=== PATIENT | female | born 1970 | race Caucasian/White ===

== ENCOUNTER 2017-01-21 16:43 | Observation (INO) | payer SELFPAY ==
[2017-01-21] MEDS ORDERED: LIDOCAINE VIS-MYLANTA 30 ML UD PO ONE (16:56)
[2017-01-21] MEDS ORDERED: ASPIRIN TABLET 325 MG TAB PO ONE (16:56)
[2017-01-21] MEDS ORDERED: ALPRAZolam 0.25 MG TAB PO ONE (16:56)
--- NOTE | 2017-01-21 17:31 | RAD ---
EXAM: Chest,2 Views CLINICAL INDICATION: 46-year-old female with palpitations. TECHNIQUE: Two-view, PA and lateral projections of the chest were obtained. COMPARISON: None. FINDINGS: Unremarkable cardiac and mediastinal silhouette. Heart size is normal. Lungs are clear without focal opacity, pneumothorax or pleural effusions. The visualized bones are within normal limits. IMPRESSION: No acute cardiopulmonary abnormalities. Electronically signed by: Tabitha Srivastava MD 01/21/2017 5:31 PM CDT Workstation: [id number]
[2017-01-21] MEDS ORDERED: SODIUM CHLORIDE 0.9% 1000ML 1,000 ML IVS ONE (18:40)
[2017-01-21] MEDS ORDERED: HYDROcodone 5MG/APAP 325MG 1 EA TAB PO ONE (20:47)
[2017-01-21] MEDS ORDERED: PIPERACILLIN/TAZOBACTAM 3.375 GM in SODIUM CHLORIDE 0.9% 100ML 100 ML IVPB ONE (21:10)
[2017-01-21] MEDS ORDERED: PIPERACILLIN/TAZOBACTAM 3.375 GM VIAL IVPB ONE (21:15)
[2017-01-21] MEDS ORDERED: SODIUM CHLORIDE 0.9% 100ML 100 ML IVPB ONE (21:16)
--- NOTE | 2017-01-21 23:06 | ED.PDOC ---
History of Present Illness - General Chief Complaint: Cardiovascular Problem Stated Complaint: Feels like her heart is racing Time Seen by Provider: 01/21/17 16:47 Source: patient Exam Limitations: no limitations - History of Present Illness Initial Comments: the patient is a 46-year-old female presenting to the emergency room secondary to 24 hours of the progressive symptoms of palpitations and her heart racing. She is having tingling around her mouth and in her hands. symptoms have been steady and progressive. The patient started phentermine as a diet supplement 3 weeks ago She does have a history of mitral valve prolapse. no chest pain. She is feeling short of breath. Vital signs are very reassuring. oxygen saturations are at 100% on room air. Blood pressure is low normal, but this is apparently not new for her. She has no cardiac history other than the mitral valve prolapse. her temperature is mildly elevated upon arrival. she has no abdominal pain upon arrival. Telemetry monitoring is showing no tachycardia. She is in normal sinus rhythm and has remained so since arrival, even though she is still feeling the palpitations and racing. Symptoms of palpitations and racing resolved with a dose of Xanax and IV fluids. The patient was tilt negative by blood pressure but tilt positive by pulse. Timing/Duration: 1-3 hours Severity: moderate Improving Factors: nothing Worsening Factors: nothing Associated Symptoms: shortness of breath Allergies/Adverse Reactions: Allergies Aspirin Allergy (Verified 01/21/17 19:35) Unknown Home Medications: Ambulatory Orders Phentermine HCl 37.5 mg PO DAILY 01/21/17 Review of Systems - Review of Systems Constitutional: States: no symptoms reported EENTM: States: no symptoms reported Respiratory: States: short of breath Cardiology: States: palpitations Gastrointestinal/Abdominal: States: no symptoms reported Genitourinary: States: no symptoms reported Musculoskeletal: States: no symptoms reported Skin: States: no symptoms reported Neurological: States: anxiety, tingling Endocrine: States: no symptoms reported Hematologic/Lymphatic: States: no symptoms reported All other Systems: No Change from Baseline Past Medical History (General) - Patient Medical History Hx Stroke: No Hx Congestive Heart Failure: No Hx Diabetes: No - Vaccination History Hx Influenza Vaccination: No Hx Pneumococcal Vaccination: No - Social History Hx Tobacco Use: Yes - Female History Patient is a Female of Child Bearing Age (10 -59 yrs old): No - hyst Family Medical History - Family History Mother Family History: No Known Physical Exam - Physical Exam General Appearance: Alert, Anxious, Obvious distress - very anxious Eye Exam: bilateral normal Ears, Nose, Throat: hearing grossly normal, normal ENT inspection, normal pharynx Neck: non-tender, full range of motion, supple Respiratory: chest non-tender, lungs clear, normal breath sounds, no respiratory distress, no accessory muscle use Cardiovascular/Chest: normal peripheral pulses, regular rate, rhythm, no edema Peripheral Pulses: radial,right: 2+, radial,left: 2+, dorsalis pedis,right: 2+, dorsalis pedis,left: 2+, posterior tibialis,right: 2+, posterior tibialis,left: 2+ Gastrointestinal/Abdominal: non tender - the patient developed some mild left mid abdominal pain approximately 4 hours into the hospital stay, soft, no organomegaly Rectal Exam: deferred Back Exam: normal inspection, no CVA tenderness, no vertebral tenderness Extremity: normal range of motion, non-tender, normal inspection, no pedal edema , normal capillary refill Neurologic: campus rep II-XII nml as tested, no motor/sensory deficits, alert, oriented x 3, other - very anxious and having an anxiety attack Skin Exam: normal color Comments: Vital Signs - 24 hr 01/21/17 01/21/17 01/21/17 16:45 17:01 18:20 Temperature 100.3 F H Pulse Rate 79 79 79 Pulse Rate [ 79 68 107 H Apical] Respiratory 20 16 16 Rate Blood Pressure 108/52 110/64 103/63 [Left Arm] O2 Sat by Pulse 94 L 96 100 Oximetry 01/21/17 01/21/17 19:01 20:56 Temperature 101 F H Pulse Rate Pulse Rate [ 83 Apical] Respiratory 16 Rate Blood Pressure 107/60 [Left Arm] O2 Sat by Pulse 93 L Oximetry Progress - Progress Progress: 01/21/17 23:11 the patient is a 46-year-old female presenting with a somewhat confusing clinical picture. I am not 100% certain about the source of the problems on this patient, and for that reason primarily she is being admitted for further monitoring and workup. Initial anxiety attack associated with palpitations is likely worsened by the phentermine. That has been held for now. The patient responded well to Xanax and IV fluids. She has been monitored on telemetry and has maintained a normal sinus rhythm. She does have EKG changes in her anterior leads that are likely long-standing. There were no dynamic changes from when she was feeling the palpitations to when she was symptom-free. cardiac enzymes and BNP are completely normal. The patient has never had any chest pain. she should have a formal cardiac evaluation sometime in the near future for further evaluation of these changes. For now, she will be admitted for telemetry monitoring overnight. The patient also has a low-grade fever of uncertain origin. She does have mild left mid abdominal discomfort that has developed since her arrival here. She may possibly have early diverticulitis, but it is just as likely to be a viral enteritis that we have seen in multiple patients today. She was given 1 dose of IV Zosyn. This will need to be followed. Laboratory work is reassuring. the patient is being admitted to make sure she improves, rather than worsens. Also to make sure no other source for the above symptoms becomes apparent. 01/21/17 23:18 - Results/Orders Results/Orders: Laboratory Tests 01/21/17 01/21/17 01/21/17 16:56 17:18 17:18 WBC 6.2 RBC 4.72 Hgb 13.7 Hct 41.8 MCV 88.7 MCH 29.1 MCHC 32.9 L RDW 14.4 Plt Count 179 MPV 8.0 Absolute Neuts (auto) 4.70 Absolute Lymphs (auto) 0.90 L Absolute Monos (auto) 0.40 Absolute Eos (auto) 0.10 Absolute Basos (auto) 0.10 Neutrophils % 76.2 Lymphocytes % 14.6 L Monocytes % 6.9 Eosinophils % 1.1 Basophils % 1.2 PT INR PTT (SP) D-Dimer, Quantitative Sodium 137 Potassium 3.5 L Chloride 101 Carbon Dioxide 26 Anion Gap 13.5 BUN 13 Creatinine 1.04 BUN/Creatinine Ratio 12.5 Random Glucose 107 H Serum Osmolality 274.4 L Calcium 9.5 Magnesium 1.8 Total Bilirubin 0.3 AST 23 ALT 17 Alkaline Phosphatase 88 Creatine Kinase 66 CK-MB (CK-2) 0.4 CK-MB (CK-2) % Not Reportable Troponin I < 0.02 B-Natriuretic Peptide < 5.0 Serum Total Protein 7.9 Albumin 4.6 Globulin 3.3 Albumin/Globulin Ratio 1.4 Amylase 53 TSH 0.85 Urine Color Urine Appearance Urine pH Ur Specific [place] Urine Protein Urine Glucose (UA) Urine Ketones Urine Blood Urine Nitrite Urine Bilirubin Urine Urobilinogen Ur Leukocyte Esterase Urine RBC Urine WBC Ur Epithelial Cells Urine Bacteria Urine Mucus Urine HCG, Qual Negative 01/21/17 01/21/17 01/21/17 17:18 17:35 20:23 WBC RBC Hgb Hct MCV MCH MCHC RDW Plt Count MPV Absolute Neuts (auto) Absolute Lymphs (auto) Absolute Monos (auto) Absolute Eos (auto) Absolute Basos (auto) Neutrophils % Lymphocytes % Monocytes % Eosinophils % Basophils % PT 11.6 INR 1.030 PTT (SP) 30.2 D-Dimer, Quantitative < 230 Sodium Potassium Chloride Carbon Dioxide Anion Gap BUN Creatinine BUN/Creatinine Ratio Random Glucose Serum Osmolality Calcium Magnesium Total Bilirubin AST ALT Alkaline Phosphatase Creatine Kinase 56 CK-MB (CK-2) 0.3 CK-MB (CK-2) % Not Reportable Troponin I < 0.02 B-Natriuretic Peptide Serum Total Protein Albumin Globulin Albumin/Globulin Ratio Amylase TSH Urine Color Yellow Urine Appearance Clear Urine pH 8.5 H Ur Specific [place] 1.015 Urine Protein 30 Urine Glucose (UA) Negative Urine Ketones 15 H Urine Blood Negative Urine Nitrite Negative Urine Bilirubin Small H Urine Urobilinogen 1.0 Ur Leukocyte Esterase Negative Urine RBC 0 Urine WBC 0 Ur Epithelial Cells 1-3 Urine Bacteria 0 Urine Mucus Moderate Urine HCG, Qual initial and repeat EKGs show very mild ST segment depression and T-wave inversion in leads V3 and V4 along with persistent Q waves in lead 3. normal sinus rhythm. Normal NC and QT intervals chest x-ray appears benign. Departure - Departure Clinical Impression: Palpitations, Anxiety, Abdominal pain Fever Qualifiers: Fever type: unspecified Qualified Code(s): R50.9 - Fever, unspecified Disposition: Admit Patient Referrals: Gilmar Ruano III, MD [Primary Care Provider] - 1-2 Weeks Home Medications: Ambulatory Orders Phentermine HCl 37.5 mg PO DAILY 01/21/17 Decision To Admit - Decistion To Admit Decision to Admit Reason: Medical Nature Decision to Admit Date: 01/21/17 Decision to Admit Time: 23:19
--- NOTE | 2017-01-21 23:06 | HP ---
CHIEF COMPLAINT: Palpitations and cough. HISTORY OF PRESENT ILLNESS: Ms. Resendiz is a 46-year-old, white female who presented to the Emergency Room this afternoon with a 24 hour history of palpitations and an evolving cough. The patient's symptoms started yesterday. She had a pretty low boogie day with one trip to the grocery store, cooking one meal, and the rest of the time just hanging out around the house with family. She admits to not drinking a lot of water. She started having a nonproductive cough a couple of days ago. Yesterday, she started coughing up some yellow sputum with it. She has not had any fever or chills along with the cough. She has chronic constipation and occasionally gets some stomach cramping. That has been at baseline and there has been no worsening of her normal belly pain. She denies nausea, vomiting and diarrhea. She has been exposed to an ill granddaughter who was seen in the clinic a couple of days ago with an unknown respiratory illness (she saw the nurse practitioner). The patient also started taking Phentermine from Dr. Ruano about three weeks ago. This was being prescribed as a weight loss aid. The patient has a history of mitral valve prolapse, anxiety, and a little depression. She takes citalopram. It was felt in the Emergency Room that she was dealing with primary anxiety associated with palpitations from the Phentermine and an early febrile illness. Dr. Hart in the Emergency Room thought the patient was tender in her left lower quadrant and he gave her a dose of IV Zosyn for potential diverticulitis although the patient has no history of diverticular disease. PAST MEDICAL HISTORY: 1. Anxiety with depression. 2. Gastroesophageal reflux disease. 3. Allergic rhinitis. 4. Mitral valve prolapse. PAST SURGICAL HISTORY: 1. Hysterectomy with bilateral oophorectomy. 2. Cholecystectomy. 3. Appendectomy. 4. Multiple laparoscopies for endometriosis prior to her hysterectomy. CURRENT MEDICATIONS: 1. Nexium 40 mg b.i.d. 2. Claritin 10 mg daily. 3. Phentermine unknown dose daily. 4. Celexa 20 mg daily. ALLERGIES: ASPIRIN. FAMILY HISTORY: Negative for premature heart disease. SOCIAL HISTORY: She smokes one pack of cigarettes per day. She rarely drinks alcoholic beverages and never gets drunk. No history of drug use. She is and lives with her here in [place]. REVIEW OF SYSTEMS: CONSTITUTIONAL: She has fatigue, but no fever or chills. No recent weight loss. HEENT: No head congestion or sore throat. CARDIOVASCULAR: No chest pains. She does have palpitations. They were relieved in the Emergency Room with one Xanax 0.25 mg tablet. PULMONARY: No shortness of breath or cough. GASTROINTESTINAL: No abdominal pain, nausea, vomiting, diarrhea, melena or hematochezia. GENITOURINARY: No incontinence, dysuria or hematuria. NEUROLOGIC: She has a slight headache, no neck pain, no dizziness or focal weakness. HEMATOLOGIC: No bleeding tendencies or easy bruising. LYMPHATIC: No swollen lymph nodes. PHYSICAL EXAMINATION: VITAL SIGNS: Temperature 98.0 (she was up to 101.0 in the Emergency Room). Pulse 73 (she was up to 98 in the Emergency Room, but never over 100). Blood pressure 94/58. Respiratory rate 20. Pulse oximetry 100% on room air. GENERAL: Awake, alert, no distress. HEENT: Sclerae, conjunctivae, oropharynx clear. Mucous membranes are a little dry. NECK: Supple. No adenopathy. CHEST: Clear to auscultation. CARDIOVASCULAR: Regular rate and rhythm without murmur. ABDOMEN: Soft, nontender, nondistended. EXTREMITIES: No cyanosis, clubbing, or edema. NEUROLOGIC: No focal motor or sensory deficits. LABORATORY: White cells 6.2, hematocrit 41.8, platelet count 179. Sodium 137, potassium 3.5, chloride 101, carbon dioxide 26, BUN 13, creatinine 1.04, CPK 66 , troponin less than 0.02, BNP less than 5, TSH 0.85. Urinalysis negative. Chest x-ray normal. EKG shows flattening of the T-waves in the anterior leads. This was unchanged when she was asymptomatic and when she was having palpitations in the Emergency Room. Repeat cardiac enzymes in the Emergency Room remained normal. ASSESSMENT: 1. Palpitations, probably secondary to acute illness combined with hydration and taking of Phentermine. 2. Febrile illness, suspect acute bronchitis versus pneumonia. 3. Mild dehydration. 4. Anxiety. 5. Gastroesophageal reflux disease. 6. Mitral valve prolapse. PLAN: The patient will be placed in observation overnight. We will repeat some blood work in the morning. I am going to hold her usual home medications for the time being. She will definitely be off of Phentermine forever. We will give her a full liter of normal saline. We will let her eat some breakfast in the morning and see how she is feeling. I do not think she has diverticulitis. I think her fever is most likely coming from a respiratory illness. I would like to repeat a chest x-ray and a CBC in the morning to make sure she is not developing pneumonia. #[id number] [facility]ENTERBess
[2017-01-22] MEDS ORDERED: NITROGLYCERIN 0.4 MG 25 EA TAB SL PRN (05:12)
--- NOTE | 2017-01-22 06:07 | RAD ---
EXAM DESCRIPTION: Chest,2 Views CLINICAL HISTORY: SOB COMPARISON: None FINDINGS: Cardiac silhouette is within normal limits. EKG leads project over the chest. There is no focal parenchymal or pleural disease. There is no acute osseous process visualized. IMPRESSION: No evidence of acute cardiopulmonary disease. Electronically signed by: Carter Goss MD 01/22/2017 6:07 AM CDT
[2017-01-22] MEDS ORDERED: ACETAMINOPHEN 325 MG TAB PO PRN (06:27)
[2017-01-22 06:44] VITALS: BP 101/67; TEMP 101.1
[2017-01-22] MEDS ORDERED: AZITHROMYCIN 250 MG TAB PO ONE (08:46)
[2017-01-22 09:39] VITALS: O2SAT 97
--- NOTE | 2017-01-22 09:58 | PCM.CORE ---
Physician DVT/VTE - Prophylaxis Currently: Patient already on anticoagulation therapy - Nurse DVT Assessment & Total Each Risk Factor Represents 1 Point: Age 41-60, Hx of smoking past year Each Risk Factor is 1 Point: Obesity (BMI >25) DVT Assessment Score: 3 - 0-1 Low Risk Treatments: Early Ambulation, Low Risk no further treatment or intervention needed
--- NOTE | 2017-01-22 17:24 | DS ---
DISCHARGE DIAGNOSIS: 1. Symptomatic sinus tachycardia secondary to acute febrile illness in combination with oral Phentermine and mild dehydration. 2. Acute bronchitis. 3. Mild dehydration secondary to number 2. 4. Gastroesophageal reflux disease. 5. Depression with anxiety. HISTORY OF PRESENT ILLNESS: Ms. Resendiz is a 46 year-old female with a history of depression and anxiety who is taking Phentermine for weight loss. She became ill with a cough a couple of days prior to admission and presented to the Emergency Room with palpitations. Her white count was normal. Her chest x-ray was clear. Her cardiac enzymes were normal. Her EKG showed some nonspecific T wave changes. Serial cardiac enzymes in the hospital were negative. Repeat chest x-ray the following morning after a liter of IV fluids remained normal. EKG showed the same nonspecific T wave changes without any alteration during asymptomatic and symptomatic periods. During symptomatic periods, the patient was known to be in normal sinus rhythm with a heart rate in the 90s. It is felt that she has a combination of side effects to Phentermine along with acute bronchitis and some mild dehydration. HOSPITAL COURSE: After treatment in the hospital overnight overnight, she feels much better and is anxious to go home. I do think she needs close followup in the clinic with Dr. Ruano, her primary care physician. We are going to stop the Phentermine but she can take all of her other home medications. For the acute bronchitis, I am going to treat her with a Z-Jean. Her initial dose of 500 mg was given in the hospital prior to discharge. She will then start the 250 mg a day tomorrow morning and will take it for 4 consecutive days. PLAN: Her discharge condition is fair, her prognosis is good. If anything worsens, she knows to come back to the Emergency Room sooner. All of the patient's questions have been answered and she is anxious to go home. #[id number] [facility]
== END 2017-01-22 09:55 | disposition home or self-care (01) ==
LOC: ER 16:43 → MS 23:02
PROVIDERS: ADMIT Family Medicine; ATTEND Family Medicine
DX: R00.0 Tachycardia, unspecified (principal); T50.5X5A Adverse effect of appetite depressants, initial encounter; R50.9 Fever, unspecified; E86.0 Dehydration; J20.9 Acute bronchitis, unspecified; K21.9 Gastro-esophageal reflux disease without esophagitis; F32.9 Major depressive disorder, single episode, unspecified; F41.9 Anxiety disorder, unspecified; R06.02 Shortness of breath; I34.1 Nonrheumatic mitral (valve) prolapse; F17.210 Nicotine dependence, cigarettes, uncomplicated; Y92.009 Unspecified place in unspecified non-institutional (private) residence as the place of occurrence of the external cause; Z79.899 Other long term (current) drug therapy; Z88.6 Allergy status to analgesic agent; Z90.49 Acquired absence of other specified parts of digestive tract; Z90.710 Acquired absence of both cervix and uterus
CPT/HCPCS: 36415 ×4; 71020 ×2; 80048; 80053; 81001; 81025; 82150; 82550 ×2; 82553 ×2; 83735; 83880 ×2; 84443; 84484 ×2; 85025 ×2; 85379; 85610; 85730; 87040 ×2; 93005 ×3; G0378; J2543; J7030; J7050; Q0144

== ENCOUNTER → 2017-01-26 | Outpatient (CLI) | payer SELFPAY ==
--- NOTE | 2017-01-26 10:26 | CT ---
Procedure: CT ABDOMEN PELVIS WITHOUT THEN WITH IV CONTRAST Exam Date: 01/26/2017 9:00 AM CDT Ordering Provider: TOMASA FERNANDEZ Clinical Indication: ABD PAIN Comparison: None TECHNIQUE: The abdomen and pelvis were scanned utilizing a multidetector helical scanner from the diaphragm to the lesser trochanter without and with contrast. Oral contrast was given. Low osmolar IV contrast was given. Coronal and sagittal reformations were obtained. DISCUSSION: LOWER THORAX: Normal. HEPATOBILIARY: Gallbladder is surgically absent. There is no focal hepatic lesion. SPLEEN: No splenomegaly. PANCREAS: No focal masses or ductal dilatation. ADRENALS: No adrenal nodules. KIDNEYS/URETERS: No hydronephrosis, stones, or solid mass lesions. PELVIC ORGANS/BLADDER: Unremarkable. PERITONEUM / RETROPERITONEUM: No free air or fluid. LYMPH NODES: No lymphadenopathy. VESSELS: Unremarkable. GI TRACT: No distention or wall thickening. BONES AND SOFT TISSUES: No acute abnormality. IMPRESSION: 1. Prior cholecystectomy. No intrahepatic biliary ductal dilatation. Examination is otherwise unremarkable. Electronically signed by: Chrissy Caballero MD 01/26/2017 10:26 AM CDT
== END | disposition home or self-care (01) ==
LOC: CT 09:06
PROVIDERS: ATTEND Family Medicine
DX: R10.9 Unspecified abdominal pain (principal)